=== PATIENT | male | born 2005 | race Caucasian/White ===

== ENCOUNTER 2023-06-18 16:30 | Emergency (ER) | payer SELFPAY ==
--- NOTE | 2023-06-18 16:32 | XRR_ITS ---
PROCEDURE INFORMATION: Exam: XR Chest Exam date and time: 06/18/2023 5:16 PM Age: 17 years old Clinical indication: Pain; Chest pressure; Additional info: Cp TECHNIQUE: Imaging protocol: Radiologic exam of the chest. Views: 1 view. COMPARISON: No relevant prior studies available. FINDINGS: Lungs: Unremarkable. No consolidation or mass. Pleural spaces: Unremarkable. No pleural effusion. No pneumothorax. Heart/Mediastinum: Unremarkable. No cardiomegaly. Bones/joints: Unremarkable. XR/XR chest 1V portable [id number] IMPRESSION: No acute findings.
--- NOTE | 2023-06-18 16:32 | ECG_ITS ---
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 Measurements Intervals [place] Rate: 73 P: 64 ME: 142 QRS: 68 QRSD: 102 T: 44 QT: 343 QTc: 379 Interpretive Statements SINUS RHYTHM No previous ECG available for comparison Electronically Signed On 06-18-2023 21:30:09 CDT by Henry Arreguin M.D. [id number]
[2023-06-18 16:34] VITALS: BP 130/78; PULSE 74; RESP 18; TEMP 36.6; O2SAT 97; BMI 22.5
[2023-06-18 17:45] VITALS: BP 134/85; PULSE 70; RESP 16; O2SAT 97
--- NOTE | 2023-06-18 17:55 | W.ED.CHESTPA ---
Documented by User: Jeff Guzmán DO 06/19/23 06:06 HPI - Chest Pain General: Chief Complaint: Chest Pain Stated Complaint: chest pains Time Seen by Provider: 06/18/23 17:39 Source: patient Mode of arrival: ambulatory History of Present Illness: 17-year-old male presents emergency room complaining of chest pain began while he was cleaning his house. When he bends over it seems to get worse also noticed when he burps it is worse. He has not had any hematemesis or coffee-ground emesis no history of DVT or PE no shortness of breath. No radiation of pain to his neck or back or arms. MD complaint: chest pain Timing of current episode: episodic Onset: during rest Pain location: substernal and epigastric Pain radiation: none Severity: mild Quality: aching Relieving factors: nothing Exacerbating factors: other (Eructations) Associated symptoms: Deny no associated symptoms, abdominal pain, diaphoresis, dyspnea, fever(s), leg edema, nausea, palpitations, sense of impending doom, syncope, vomiting or other Review of Systems Const: Denies: fever(s) or diaphoresis Card: Denies: palpitations or syncope Resp: Denies: dyspnea GI: Denies: abdominal pain, nausea or vomiting : Denies: dysuria, urinary frequency or urinary urgency Musc: Denies: neck pain or back pain Skin/Breast: Denies: rash Physical Exam Const: COMMON NORMALS: no acute distress GENERAL APPEARANCE: cooperative and comfortable ORIENTATION/CONSCIOUSNESS: Yes awake, Yes oriented to person, Yes oriented to place and Yes oriented to time HENMT: COMMON NORMALS: normocephalic, atraumatic and hearing grossly normal bilaterally HEAD & SCALP: normocephalic and atraumatic Resp: COMMON NORMALS: normal respiratory effort, No retractions, No use of accessory muscles and clear to auscultation bilaterally AUSCULTATION: clear to auscultation bilaterally Cardio: COMMON NORMALS: regular rate, regular rhythm and No murmurs present (Cardio) RATE: regular rate RHYTHM: regular rhythm GI: COMMON NORMALS: Soft to palpation and No hepatosplenomegaly present AUSCULTATION: Yes normoactive bowel sounds PALPATION: Yes Soft to palpation, No Tenderness to palpation present (GI), No Guarding due to palpation present (GI) and Yes No hepatosplenomegaly present Extremity: COMMON NORMALS: normal to inspection, capillary refill normal, no clubbing, cyanosis or edema, no calf tenderness and no pedal edema Neuro: SENSORIUM/ORIENTATION: Yes oriented to person, Yes oriented to place and Yes oriented to time Skin: COMMON NORMALS: no rashes or lesions noted GENERAL SKIN EXAM: no rashes or lesions noted Course Vital Signs: Vital signs: Vital Signs Temperature 97.9 F 06/18/23 16:34 Pulse Rate 66 06/18/23 18:39 Respiratory Rate 16 06/18/23 18:39 Blood Pressure 119/75 06/18/23 18:39 Pulse Oximetry 96 06/18/23 18:39 MDM - Chest Pain Medical Decision Making Care signed out to Dr. Valenzuela at change of shift. See final notes for diagnosis and disposition. Medical Records I reviewed the patient's medical records. Lab Data I reviewed the patient's lab results. Radiology Impressions Chest X-Ray 06/18/23 16:32 IMPRESSION: No acute findings. Laboratory Results Group A Strep Rapid Negative (Negative) 06/18/23 19:30 Discharge Plan Discharge Patient Disposition: Home Clinical Impression: Atypical chest pain Condition: Stable Prescriptions: New pantoprazole 20 mg tablet,delayed release (DR/EC) 20 mg PO DAILY 28 Days Qty: 30 0RF naproxen 500 mg tablet 500 mg PO Q12H PRN (Reason: pain) Qty: 20 0RF Discharge Orders: Discharge ED (Routine); Ordered 06/18/23 Ordered By: Alejandro Valenzuela Discharge Diet: Usual diet Discharge Activity: Resume usual activity Patient Instructions: Opioid Safety, Pain Management Activity Restrictions/Additional Instructions: Activity Restrictions/Additional Instructions: Thank you for choosing [facility] for your healthcare needs today. Please realize that you were seen in the Emergency Department and that we are providing you with an emergency medical screening exam and this may not be a complete and all inclusive of all the testing and or medical work-up that you may need to determine your ailment or severity of your illness. It is very important that you follow-up as instructed with your Primary care provider or Specialist for additional evaluation and to discuss your medical treatment plan. You may return to the Emergency Department should you have concerns or if your condition changes or worsens in any way. Coding Level of Care Code ED Laundry Aide for Chg Fwd Documented by User: Alejandro Valenzuela MD 06/19/23 02:48 HPI - Chest Pain General: Chief Complaint: Chest Pain Stated Complaint: chest pains Time Seen by Provider: 06/18/23 17:39 Course Vital Signs: Vital signs: Vital Signs Temperature 97.9 F 06/18/23 16:34 Pulse Rate 66 06/18/23 18:39 Respiratory Rate 16 06/18/23 18:39 Blood Pressure 119/75 06/18/23 18:39 Pulse Oximetry 96 06/18/23 18:39 MDM - Chest Pain Medical Decision Making Care signed out to Dr. Valenzuela at change of shift. See final notes for diagnosis and disposition. I have discussed the patient's case with the off: Physician <Dr. Guzmán> and I have assumed care of the patient. We have discussed the current lab/radiographic results that have been resulted and the pending tests. Lab Data Radiology Impressions Chest X-Ray 06/18/23 16:32 IMPRESSION: No acute findings. Laboratory Results Group A Strep Rapid Negative (Negative) 06/18/23 19:30 All radiology interpretation(s) finalized by discharge Discharge Plan Discharge Patient Disposition: Home Clinical Impression: Atypical chest pain Condition: Stable Prescriptions: New pantoprazole 20 mg tablet,delayed release (DR/EC) 20 mg PO DAILY 28 Days Qty: 30 0RF naproxen 500 mg tablet 500 mg PO Q12H PRN (Reason: pain) Qty: 20 0RF Discharge Orders: Discharge ED (Routine); Ordered 06/18/23 Ordered By: Alejandro Valenzuela Discharge Diet: Usual diet Discharge Activity: Resume usual activity Patient Instructions: Opioid Safety, Pain Management Activity Restrictions/Additional Instructions: Activity Restrictions/Additional Instructions: Thank you for choosing [facility] for your healthcare needs today. Please realize that you were seen in the Emergency Department and that we are providing you with an emergency medical screening exam and this may not be a complete and all inclusive of all the testing and or medical work-up that you may need to determine your ailment or severity of your illness. It is very important that you follow-up as instructed with your Primary care provider or Specialist for additional evaluation and to discuss your medical treatment plan. You may return to the Emergency Department should you have concerns or if your condition changes or worsens in any way. Coding Level of Care Code ED Laundry Aide for Lynda Araiza
[2023-06-18] MEDS: lidocaine 2% viscous 15 ML, aluminum-mag hydrox-simethicon 30 ML, sucralfate oral liq 1 GM PO (18:07)
[2023-06-18 18:39] VITALS: BP 119/75; PULSE 66; RESP 16; O2SAT 96
[2023-06-18 19:47] LABS: Rapid Strep A Test Negative (Negative)
== END 2023-06-18 19:40 | disposition home or self-care (01) ==
PROVIDERS: Emergency Provider Internal Medicine
DX: R07.89 Other chest pain (principal)
CPT/HCPCS: 71045; 87081; 87880; 93005; 99285

== ENCOUNTER → 2023-12-19 08:50 | Outpatient (BNVA) | payer MEDICAID, SELFPAY | PROVIDERS: Visit Provider Podiatrist Foot & Ankle Surgery | DX: L60.0 Ingrowing nail (principal) | CPT/HCPCS: 11730; 99203 ==

== ENCOUNTER → 2024-08-25 14:08 | Outpatient (BNVA) | payer MEDICAID, SELFPAY | PROVIDERS: Visit Provider Emergency Medicine | DX: J02.9 Acute pharyngitis, unspecified (principal) | CPT/HCPCS: 87071; 87077; 87880 ==